=== PATIENT | female | born 1950 | race Caucasian/White ===

== ENCOUNTER 2016-12-29 09:37 | Emergency (ER) | payer MEDICARE ==
[~2016-12-29] VITALS: Ht 167.6 cm; Wt 75.0 kg
[~2016-12-29 09:37] MED LIST: ATOR40TA PO; HYDR-3307 PO; LEVO100T PO; OXYC-302 PO; VENL150C PO
[2016-12-29 10:23] VITALS: BP 175/93
== END 2016-12-29 11:00 | disposition home or self-care (01) ==
LOC: ED 10:54
DX: S20.211A Contusion of right front wall of thorax, initial encounter (principal); Z93.6 Other artificial openings of urinary tract status; Z90.721 Acquired absence of ovaries, unilateral; X58.XXXA Exposure to other specified factors, initial encounter; Y93.89 Activity, other specified; Y92.009 Unspecified place in unspecified non-institutional (private) residence as the place of occurrence of the external cause; Y99.9 Unspecified external cause status
CPT/HCPCS: 99284